=== PATIENT | male | born 1965 | race Caucasian/White ===

== ENCOUNTER 2019-09-04 10:42 | Emergency (ER) | payer MEDICAID ==
[~2019-09-04] VITALS: Ht 185.4 cm; Wt 90.0 kg
[2019-09-04] MEDS ORDERED: ONDANSETRON 4MG ODT PO ONE (11:15)
[2019-09-04] MEDS ORDERED: FAMOTIDINE 20MG TABLET PO ONE (11:15)
[2019-09-04 11:52] LABS: BASOPHILS % 0.7 % (0.0-2.0); EOSINOPHILS % 2.1 % (0.0-5.0); HEMATOCRIT. 37.9 % (42.0-52.0); HEMOGLOBIN. 12.9 g/dL (14.0-18.0); LYMPHOCYTES % 25.5 % (20.0-50.0); MEAN CORPUSCULAR HEMOGLOBIN 31.5 pg (28.0-32.0); MEAN PLATELET VOLUME 9.9 fl (7.4-10.4); MONOCYTES % 12.1 % (2.0-8.0); NEUTROPHILS % 59.6 % (40.0-76.0); PLATELET 259 x1000/uL (130-400); RED BLOOD CELL COUNT 4.08 mill/uL (4.7-6.1); RED CELL DISTRIBUTION WIDTH 14.2 % (11.6-14.6)
[2019-09-04 11:55] LABS: CHLORIDE 108 mEq/L (98-107)
[2019-09-04] MEDS ORDERED: ACETAMINOPHEN 500MG TABLET PO ONE (14:00)
[2019-09-04 14:08] VITALS: BP 150/99
== END 2019-09-04 14:10 | disposition home or self-care (01) ==
LOC: ER 10:42
DX: R11.2 Nausea with vomiting, unspecified (principal); I10 Essential (primary) hypertension; Z20.828 Contact with and (suspected) exposure to other viral communicable diseases
CPT/HCPCS: 36415; 71045; 80053; 83690; 85025; 87635; 99284; Q0162